=== PATIENT | male | born 1955 | race Caucasian/White ===

== ENCOUNTER 2020-05-17 01:00 | Inpatient (IN) | payer OTHER ==
[~2020-05-17] VITALS: Ht 167.6 cm; Wt 96.2 kg
[2020-05-17] VITALS (7 sets, daily range): BP systolic 128–138; BP diastolic 66–71
--- NOTE | 2020-05-17 03:00 | NUR ---
JOURNEYMAN MACHINISTLINUX NETWORK ADMINISTRATOR NOTES RECEIVED PATIENT DIRECT ADMIT FROM [facility], ALERT AND ORIENTED X 4 AMBULATORY WITH CANE. VERBALLY RESPONSIVE AND ABLE TO FOLLOW DIRECTIONS. BREATHING REGULAR AND UNLABORED ON ROOM AIR. LEFT FOREARM G20 AND RIGHT AC G20 IV LINES INTACT AND PATENT, FLUSHING WELL WITH NO BLEEDING OR S/S OF INFILTRATION NOTED. 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 PHOTO TAKEN ATTACHED TO CHART. PLACED ON CARDIAC MONITORING WITH NSR AT 92bpm. PATIENT DIDN'T HAVE ADVANCE DIRECTIVES AND WISHED TO BE FULL CODE. DENIES SUICIDAL IDEATION OR PAIN/DISCOMFORT AT THIS TIME. BED LOW AND LOCKED ON SEMI FOWLERS POSITION. CALL LIGHT IN REACH. WILL CONTINUE TO MONITOR.
[2020-05-17] MEDS ORDERED: IV NS 0.9% 1,000 ML IV PRN (03:32)
[2020-05-17] MEDS ORDERED: HYDROCODONE/APAP 5/325MG TABLET PO PRN (04:00)
[2020-05-17] MEDS ORDERED: Z GUARD REMEDY 2 OZ OINT TP PRN (04:00)
[2020-05-17] MEDS ORDERED: MAG HYDROX/AL HYDROX/SIMETH 30 ML UDC PO PRN (04:00)
[2020-05-17] MEDS ORDERED: ONDANSETRON HCL/PF 4 MG/2 ML VIAL IVP PRN (04:00)
[2020-05-17] MEDS ORDERED: ACETAMINOPHEN 325 MG TABLET PO PRN (04:00)
[2020-05-17] MEDS ORDERED: PIPERACILLIN /TAZOBACTAM 3.375 G VIAL IV ONE (04:20)
[2020-05-17] MEDS ORDERED: PIPERACILLIN /TAZOBACTAM 3.375 G in IV D5W 50 ML IV ONE (04:30)
--- NOTE | 2020-05-17 04:30 | NUR ---
ACCOUNT ENGINEER NOTES MRSA SWAB DONE.
[2020-05-17] MEDS ORDERED: VANCOMYCIN 1 GM VIAL ONE ×2 (04:57→04:59)
[2020-05-17] MEDS ORDERED: VANCOMYCIN 2 GM in IV D5W 500 ML IV ONE (05:00)
[2020-05-17] MEDS ORDERED: GLIP10TA11 PO (05:06)
[2020-05-17] MEDS ORDERED: METF-442 PO (05:06)
[2020-05-17] MEDS ORDERED: INSU100V3 SQ (05:06)
[2020-05-17] MEDS ORDERED: FURO20TA4 PO (05:06)
[2020-05-17] MEDS ORDERED: ATOR40TA PO (05:06)
[2020-05-17] MEDS ORDERED: INSU100I26 SQ ×2 (05:06)
[2020-05-17 05:52] LABS: BASOPHILS % (AUTO) 3.6 % (0.0-2.0); EOSINOPHILS % (AUTO) 8.7 % (0.0-6.0); HEMATOCRIT 23 % (39-51); HEMOGLOBIN 7.6 g/dL (13.5-17.5); LYMPHOCYTES # (AUTO) 0.3 /CMM (0.8-4.8); LYMPHOCYTES % (AUTO) 47.5 % (20.0-44.0); MEAN CORPUSCULAR HGB CONC 34 g/dl (31.0-36.0); MEAN CORPUSCULAR VOLUME 99 fL (80-96); MONOCYTES # (AUTO) 0.1 /CMM (0.1-1.30); MONOCYTES % (AUTO) 8.4 % (2.0-12.0); NEUTROPHILS # (AUTO) 0.2 /CMM (1.8-8.9); NEUTROPHILS % (AUTO) 31.8 % (43.0-81.0); PLATELET COUNT (AUTO) 61 /CMM (150-450); RED BLOOD CELL COUNT(AUTO) 2.28 MIL/uL (4.5-6.0)
[2020-05-17 05:56] LABS: ALBUMIN 2.4 g/dL (3.4-5.0); BILIRUBIN,TOTAL 0.5 mg/dL (0.2-1.0); CALCIUM, SERUM 8.3 mg/dL (8.5-10.1); CREATININE 0.6 mg/dL (0.6-1.3); MAGNESIUM 1.6 mg/dL (1.8-2.4); PHOSPHORUS 3.1 mg/dL (2.5-4.9); TOTAL PROTEIN, SERUM 6.4 g/dL (6.4-8.2); WHITE BLOOD COUNT (AUTO) 0.7 K/uL (4.3-11.0)
[2020-05-17] MEDS ORDERED: PIPERACILLIN /TAZOBACTAM 3.375 G in IV D5W 50 ML IV SCH (06:00)
--- NOTE | 2020-05-17 06:10 | NUR ---
READING ASSISTANT NOTES RELAYED CRITICAL LOW 0.7 WBC RESULT TO DONTE KLEIN WITH NO ORDERS PER HER PATIENT IS NEUTROPENIC. NO ORDERS FOR CHEMICAL DVT PPX TOO D/T LOW PLATELET LEVELS.
[2020-05-17 06:14] LABS: THYROID STIMULATING HORMONE 0.775 uIU/mL (0.358-3.74)
[2020-05-17 06:22] LABS: EOSINOPHILS % (MANUAL) 6 % (0-4); LYMPHOCYTES % (MANUAL) 57 % (16-48); MONOCYTES % (MANUAL) 7 % (0-11.0); NEUTROPHILS % (MANUAL) 30 (42-76)
--- NOTE | 2020-05-17 06:50 | NUR ---
SULFUR CHLORIDE OPERATOR CLOSING NOTES PATIENT IN BED ALERT AND ORIENTED X 4 AMBULATORY WITH CANE. AFEBRILE WITH NO S/S OF DISTRESS OBSERVED. LEFT FOREARM G20 AND RIGHT AC G20 IV LINES PATENT AND INFUSING WELL. MAINTAINED ON CARDIAC MONITORING WITH NSR AT 84bpm. DENIES PAIN/DISCOMFORT AT THIS TIME. MAINTAINED ON REVERSE ISOLATION FOR NEUTROPENIA. BED LOW AND LOCKED ON SEMI FOWLERS POSITION. CALL LIGHT IN REACH. WILL ENDORSE TO MORNING SHIFT FOR PATRICK.
--- NOTE | 2020-05-17 07:30 | NUR ---
MANAGER IMPLEMENTATION NOTES PT IN BED, AWAKE, ALERT AND ORIENTED, SITTING IN BED, EATING BREAKFAST, NO COMPLAINT OF PAIN OR ANY DISCOMFORT, BREATHING PATTERN NORMAL, IV FLUIDS INFUSING WELL, CALL LIGHT WITHIN REACH, NEEDS ATTENDED.
[2020-05-17] MEDS: PANTOPRAZOLE 40 MG VIAL IV SCH ×3 (08:41→17:34)
[2020-05-17] MEDS: Magnesium 1GM/D5W 100ML PREMIX 100 ML IV SCH ×2 (09:22→16:35)
--- NOTE | 2020-05-17 10:48 | NUR ---
WOUND CARE CONSULT: PT PRESENTS WITH LOWER BACK/SACRAL SCARRING, PRESENT ON ADMISSION. AREA IS PROTECTED WITH MEPILEX. DISCUSSED SKIN PROTECTION WITH NURSING STAFF. WILL SEE PRN. WEINER IN AGREEMENT WITH PLAN OF CARE. Addendum: 05/17/20 at 1049 by JONI SWENSON WNDNU Amended: Links added.
[2020-05-17] MEDS: PIPERACILLIN /TAZOBACTAM 3.375 G in IV D5W 100 ML IV SCH ×2 (11:04→17:35)
--- NOTE | 2020-05-17 12:35 | NUR ---
EDITOR SOUND NOTES PT IN BED, RESTING, NO COMPLAINT OF PAIN OR ANY DISCOMFORT, NOT IN DISTRESS, PT SEEN AND EXAMINED BY DR. MULTANI, PLAN OF CARE DISCUSSED WITH PT, VERBALIZED UNDERSTANDING, CALL LIGHT WITHIN REACH, IV FLUIDS INFUSING WELL.
[2020-05-17] MEDS ORDERED: DEXTROSE 50%-WATER 50 ML DISP.SYRIN IV PRN (13:30)
--- NOTE | 2020-05-17 15:49 | NUR ---
SPEEDER MACHINE OPERATOR NOTES PER DR. MULTANI, PT DOES NOT NEED BLOOD TRANSFUSION AT THIS TIME.
[2020-05-17] MEDS: glipiZIDE 10 MG TABLET PO SCH (17:34)
[2020-05-17] MEDS: INSULIN REGULAR, HUMAN 100 UNIT/ML 3 ML VIAL SQ PRN ×2 (17:39→23:37)
[2020-05-17] MEDS: BLOOD SUGAR DIAGNOSTIC 1 EACH STRIP IN SCH ×2 (17:40→23:34)
[2020-05-17] MEDS ORDERED: ATORVASTATIN 40 MG TABLET PO SCH (18:00)
[2020-05-17] MEDS: TBO-FILGRASTIM 480 MCG/0.8 ML ML SQ SCH (18:00)
--- NOTE | 2020-05-17 19:00 | NUR ---
LAP GRINDER NOTES PT IN BED, AWAKE, ALERT AND ORIENTED, WATCHING TV, PT ABLE TO AMBULATE IN THE ROOM, TOLERATES CURRENT DIET, CALL LIGHT WITHIN REACH, IV SITE TO RIGHT A/C INTACT AND PATENT, BS CHECKED, INSULIN GIVEN PER SLIDING SCALE ORDERED, ALL NEEDS ATTENDED.
--- NOTE | 2020-05-17 19:49 | NUR ---
TELE RECEIVE PT IN BED A/O X 3 WATCHING TV 88 SR IN TELE MONITORING STABLE AND NOT IN DISTRESS SAFETY MEASURES AT ALL TIMES. WILL CONT TO MONITOR
[2020-05-17] MEDS: CEFEPIME 2 GM in IV D5W 100 ML IV SCH (21:17)
[2020-05-17] MEDS: VANCOMYCIN 1.5 GM in IV D5W 500 ML IV SCH (23:30)
[2020-05-17] MEDS: INSULIN GLARGINE, 100 UNIT/ML CARTRIDGE SQ SCH (23:36)
[2020-05-18] VITALS (7 sets, daily range): BP systolic 129–150; BP diastolic 70–88
[2020-05-18] MEDS: CEFEPIME 2 GM in IV D5W 100 ML IV SCH ×3 (05:32→20:57)
--- NOTE | 2020-05-18 06:00 | NUR ---
FINANCIAL SPECIALIST 73'S HR SR ON CARDIAC MONITORING, AFEBRILE, MONITORED ACCORDINGLY, GOOD SKIN CARE AT ALL TIMES, SLEPT WELL, DENIES PAIN THROUGHOUT SHIFT. NEEDS ATTENDED AND ANTICIPATED, KEPT CLEAN, DRY AND COMFORTABLE, SAFETY MEASURES AT ALL TIMES. ENDORSE POC.
[2020-05-18] MEDS: BLOOD SUGAR DIAGNOSTIC 1 EACH STRIP IN SCH ×4 (06:25→21:15)
[2020-05-18] MEDS: INSULIN REGULAR, HUMAN 100 UNIT/ML 3 ML VIAL SQ PRN ×4 (06:26→21:18)
--- NOTE | 2020-05-18 07:37 | NUR ---
MAINTENANCE REPAIRER OPENING NOTE PATIENT IN BED RESTING COMFORTABLY. PATIENT IN NO ACUTE DISTRESS. NO SOB NOTED. PATIENT BREATHING IS EVEN AND UNLABORED. PATIENT ON CARDIAC MONITORING READING SINUS RHYTHM HR 96. PATIENT BED ALARM IS ON. SAFETY PRECAUTIONS IN PLACE. EDUCATED TO USE CALL LIGHT FOR ASSISTANCE. PATIENT BED IS LOCKED AND IN LOWEST POSITION. CALL LIGHT WITHIN REACH. WILL CONTINUE TO MONITOR.
[2020-05-18 07:48] LABS: CALCIUM, SERUM 8.5 mg/dL (8.5-10.1); CREATININE 0.6 mg/dL (0.6-1.3); PHOSPHORUS 3.1 mg/dL (2.5-4.9); POTASSIUM 3.5 mmol/L (3.5-5.1)
[2020-05-18 08:18] LABS: BASOPHILS % (AUTO) 1.8 % (0.0-2.0); EOSINOPHILS % (AUTO) 6.3 % (0.0-6.0); HEMATOCRIT 22 % (39-51); HEMOGLOBIN 7.4 g/dL (13.5-17.5); LYMPHOCYTES # (AUTO) 0.4 /CMM (0.8-4.8); MEAN CORPUSCULAR HGB CONC 33 g/dl (31.0-36.0); MEAN CORPUSCULAR VOLUME 98 fL (80-96); MONOCYTES # (AUTO) 0.1 /CMM (0.1-1.30); MONOCYTES % (AUTO) 6.4 % (2.0-12.0); NEUTROPHILS # (AUTO) 0.5 /CMM (1.8-8.9); NEUTROPHILS % (AUTO) 46.5 % (43.0-81.0); RED BLOOD CELL COUNT(AUTO) 2.25 MIL/uL (4.5-6.0)
[2020-05-18 08:23] LABS: PLATELET COUNT (AUTO) 43 /CMM (150-450)
[2020-05-18] MEDS: PANTOPRAZOLE 40 MG VIAL IV SCH (09:01)
[2020-05-18] MEDS: glipiZIDE 10 MG TABLET PO SCH ×2 (09:01→17:13)
[2020-05-18 09:46] LABS: BAND % (MANUAL) 4 % (0.0-5.0); EOSINOPHILS % (MANUAL) 4 % (0-4); LYMPHOCYTES % (MANUAL) 34 % (16-48); MONOCYTES % (MANUAL) 6 % (0-11.0); NEUTROPHILS % (MANUAL) 52 (42-76)
[2020-05-18] MEDS: VANCOMYCIN 1.5 GM in IV D5W 500 ML IV SCH ×2 (10:38→23:56)
--- NOTE | 2020-05-18 11:39 | NUR ---
CONFIGURATION MANAGEMENT CONSULTANT NOTE INFORMED LETY MULTANI OF URINE CULTURE RESULTS RECEIVED FROM [facility]. URINE CULTURE RESULTED IN MRSA. LETY MULTANI AWARE, PER LETY PATIENT ALREADY ON VANCO NO NEW ORDERS AT THIS TIME. LETY AWARE OF PLT 43 AND WBC 1.0. PATIENT CONTINUED ON ISOLATION PRECAUTIONS.
[2020-05-18] MEDS: MAGNESIUM HYDROXIDE 30 ML UDC PO PRN (12:29)
--- NOTE | 2020-05-18 12:29 | NUR ---
MS RN NOTE PATIENT REQUESTING MILK OF MAGNESIA FOR CONSTIPATION. MILK OF MAGNESIA GIVEN ORDERED.
--- NOTE | 2020-05-18 15:30 | NUR ---
MS RN NOTE MADE AWARE TO DR. SALAZAR OF PLT LEVEL 43 AND IF SHE WANTS TO CONTINUE TO MEDICATION GRANIX. PER DR. SALAZAR CONTINUE GRANIX MEDICATION AND PHARMACY [facility] MADE AWARE.
--- NOTE | 2020-05-18 16:27 | NUR ---
MS RN NOTE CLARIFIED WITH LETY MULTANI REGARDING IF PATIENT NEEDED BLOOD TRANSFUSION THAT WAS ORDERED YESTERDAY. PER LETY MULTANI NO NEED FOR BLOOD TRANSFUSION AT THIS TIME. CBC ORDERED FOR TOMORROW.
--- NOTE | 2020-05-18 16:28 | NUR ---
MS RN NOTE TRIED TO CALL FOR PATIENTS ONCOLOGIST DR. LOCKWOOD PER LETY MULTANI REQUEST FOR MEDICAL RECORDS FOR BLOOD CULTURES. MEDICAL OFFICES CLOSED FOR THE WEEKEND AT THIS TIME.
[2020-05-18] MEDS: TBO-FILGRASTIM 480 MCG/0.8 ML ML SQ SCH (17:08)
[2020-05-18] MEDS: PANTOPRAZOLE 40 MG TABLET.DR PO SCH (17:13)
[2020-05-18] MEDS: NYSTATIN (PYXIS) 500,000 UNIT/5 ML ORAL.SUSP PO SCH (17:13)
--- NOTE | 2020-05-18 18:39 | NUR ---
MS RN CLOSING NOTE PATIENT IN BED RESTING COMFORTABLY. PATIENT IN NO ACUTE DISTRESS. NO SOB NOTED. PATIENT BREATHING IS EVEN AND UNLABORED. PATIENT KEPT CLEAN, DRY, AND COMFORTABLE THROUGHOUT SHIFT. PATIENT BED ALARM IS ON. SAFETY PRECAUTIONS IN PLACE. ISOLATION PRECAUTIONS MAINTAINED. EXPLAINED ALL DUE MEDS. NEEDS AND CONCERNS ADDRESSED. PATIENT BED IS LOCKED AND IN LOWEST POSITION. CALL LIGHT WITHIN REACH. WILL ENDORSE CARE TO PM SHIFT FOR PATRICK.
--- NOTE | 2020-05-18 19:30 | NUR ---
MS RN RECEIVE PT IN BED A/O X 4 STABLE AND NOT IN DISTRESS, SAFETY MEASURES AT ALL TIMES. WILL CONT TO MONITOR
[2020-05-18] MEDS: INSULIN GLARGINE, 100 UNIT/ML CARTRIDGE SQ SCH (21:18)
--- NOTE | 2020-05-18 23:48 | NUR ---
STILL AWAITING RESULT TOXICOLOGY VANCOMYCIN
[2020-05-19] MEDS: CEFEPIME 2 GM in IV D5W 100 ML IV SCH ×3 (05:29→21:08)
--- NOTE | 2020-05-19 06:50 | NUR ---
MS RN ASLEEP AND EASILY AWAKEN, ALL NEEDS ATTENDED AND ANTICIPATED, AFEBRILE, KEPT CLEAN, DRY AND COMFORTABLE. AM CARE RENDERED, GOOD SKIN CARE AT ALL TIMES. MONITORED CLOSELY, SAFETY MEASURES AT ALL TIMES. WILL ENDORSE TO NEXT SHIFT.
[2020-05-19] MEDS: BLOOD SUGAR DIAGNOSTIC 1 EACH STRIP IN SCH ×4 (06:52→22:23)
[2020-05-19] MEDS: INSULIN REGULAR, HUMAN 100 UNIT/ML 3 ML VIAL SQ PRN ×4 (06:54→22:38)
[2020-05-19 07:26] LABS: BASOPHILS % (AUTO) 2.1 % (0.0-2.0); EOSINOPHILS % (AUTO) 2.3 % (0.0-6.0); HEMATOCRIT 22 % (39-51); HEMOGLOBIN 7.6 g/dL (13.5-17.5); LYMPHOCYTES # (AUTO) 0.4 /CMM (0.8-4.8); LYMPHOCYTES % (AUTO) 19.1 % (20.0-44.0); MEAN CORPUSCULAR HGB CONC 34 g/dl (31.0-36.0); MEAN CORPUSCULAR VOLUME 98 fL (80-96); MONOCYTES # (AUTO) 0.1 /CMM (0.1-1.30); MONOCYTES % (AUTO) 6.8 % (2.0-12.0); NEUTROPHILS # (AUTO) 1.4 /CMM (1.8-8.9); NEUTROPHILS % (AUTO) 69.7 % (43.0-81.0); RED BLOOD CELL COUNT(AUTO) 2.26 MIL/uL (4.5-6.0); WHITE BLOOD COUNT (AUTO) 2.1 K/uL (4.3-11.0)
--- NOTE | 2020-05-19 07:34 | NUR ---
MS RN OPENING NOTES PATIENT IS AWAKE A/O X 4. NO SIGNS OF DISTRESS AND SO SOB IN ROOM AIR. IV R AC #18G BUTTERFLY INTACT. NO COMPLAIN OF PAIN AT THIS TIME. SAFETY MEASURES ARE APPLIED, BED IS IN LOW POSITION AND LOCKED. SIDE RAILS UP X 2 FOR SAFETY. CALL LIGHT WITHIN REACH. WILL CONTINUE TO MONITOR Addendum: 05/19/20 at 0755 by INDERJIT ABBOTT RN MS RN OPENING NOTES PATIENT IS AWAKE A/O X 4. NO SIGNS OF DISTRESS AND SO SOB IN ROOM AIR. IV R AC #18G BUTTERFLY INTACT. NO COMPLAIN OF PAIN AT THIS TIME. REVERSE ISOLATION. SAFETY MEASURES ARE APPLIED, BED IS IN LOW POSITION AND LOCKED. SIDE RAILS UP X 2 FOR SAFETY. CALL LIGHT WITHIN REACH. WILL CONTINUE TO MONITOR
[2020-05-19 07:39] LABS: CALCIUM, SERUM 8.9 mg/dL (8.5-10.1); CREATININE 0.6 mg/dL (0.6-1.3); POTASSIUM 3.6 mmol/L (3.5-5.1)
[2020-05-19 07:44] LABS: PLATELET COUNT (AUTO) 36 /CMM (150-450)
[2020-05-19 08:00] VITALS: BP 134/68
--- NOTE | 2020-05-19 08:00 | NUR ---
MADE AWARE TO MAJOR MULTANI OF PLT LEVEL 36. THERE ARE NO SIGNS OF BLEEDING. NO NEW ORDERS CONTINUE ON REVERSE ISOLATION. WILL CONTINUE TO MONITOR.
[2020-05-19] MEDS: NYSTATIN (PYXIS) 500,000 UNIT/5 ML ORAL.SUSP PO SCH ×3 (08:04→16:50)
[2020-05-19] MEDS: glipiZIDE 10 MG TABLET PO SCH ×2 (08:04→16:50)
[2020-05-19] MEDS: PANTOPRAZOLE 40 MG TABLET.DR PO SCH ×2 (08:04→16:50)
[2020-05-19 08:59] LABS: EOSINOPHILS % (MANUAL) 2 % (0-4); LYMPHOCYTES % (MANUAL) 20 % (16-48); MONOCYTES % (MANUAL) 6 % (0-11.0); NEUTROPHILS % (MANUAL) 68 (42-76)
[2020-05-19] MEDS: VANCOMYCIN 1.5 GM in IV D5W 500 ML IV SCH ×2 (11:49→22:41)
--- NOTE | 2020-05-19 14:13 | NUR ---
DR. SALAZAR AWARE PF PATIENT PLATELET COUNT DROP TO 36. SHE SAID TO CONTINUE WITH GRANIX TODAY AND WE WILL MONITOR LABS TOMORROW. NOTED AND CARRIED OUT.
[2020-05-19 16:00] VITALS: BP 148/84
[2020-05-19] MEDS: TBO-FILGRASTIM 480 MCG/0.8 ML ML SQ SCH (17:18)
[2020-05-19] MEDS: MAGNESIUM HYDROXIDE 30 ML UDC PO PRN (18:31)
--- NOTE | 2020-05-19 19:44 | NUR ---
MR RN CLOSED NOTES PATIENT IS A/O X 4. NO SIGNS OF DISTRESS IN ROOM AIR. IV R FA # 20G INTACT AND IV L HAND #22 G INTACT. REVERSE ISOLATION PRECAUTION. PATIENT REMAINED STABLE THROUGH OUT SHIFT. KEPT CLEAN AND DRY. ALL MEDICATIONS WERE GIVEN SCHEDULED. SAFETY MEASURES ARE APPLIED, BED IS IN LOCK POSITION SIDE RAILS UP X 2 FOR SAFETY. CALL LIGHT WITHIN REACH. WILL ENDORSE TO THE NEXT CODING ANALYST NURSE.
[2020-05-19 20:00] VITALS: BP 150/73
[2020-05-19] MEDS ORDERED: MORPHINE SULFATE INJ 2 MG/ML DISP.SYRIN IV PRN (20:00)
--- NOTE | 2020-05-19 20:00 | NUR ---
MS/RN OPENING NOTES RECEIVED PATIENT IN BED, AWAKE, ALERT X4, ABLE TO VERBALIZE NEEDS, REPORTED SEVERE PAIN OF 10 IN BLE AND REFUSE PO NORCO AND PREFER TO HAVE MORPHINE , CLARIFIED WITH PATIENT THAT HE HAS TAKEN MORPHINE AT THE ER OF [facility] AND HAS NOT USED IT AT HOME, MD AWARE AND MD ORDER ONE TIME IV MORPHINE 1 MG. ORDER CARRIED OUT. TO MONITOR. BP ELEVATED AT 150/73. BED LOCKED, CALL LIGHTS WITHIN REACH, SELF CARE ABILITIY, ON ROOM AIR, TO MONITOR. RECEIVED ENDORSEMENT FROM AM RN FOR PATRICK.
[2020-05-19] MEDS: MUPIROCIN OINT 2% 22 GM TUBE NS SCH (21:00)
--- NOTE | 2020-05-19 21:16 | NUR ---
ms/rn notes PATIENT MORPHINE ONE TIME ORDER IVP GIVEN 1 MG/0.5 ML FOR SEVERE PAIN TO MONITOR RELIEF.
[2020-05-19] MEDS: INSULIN GLARGINE, 100 UNIT/ML CARTRIDGE SQ SCH (22:36)
[2020-05-20] MEDS: CEFEPIME 2 GM in IV D5W 100 ML IV SCH ×3 (04:01→20:25)
[2020-05-20] MEDS: BLOOD SUGAR DIAGNOSTIC 1 EACH STRIP IN SCH ×4 (06:03→21:26)
--- NOTE | 2020-05-20 06:18 | NUR ---
329-1 MS/RN NOTES PATIENT ABLE TO SLEEP DURING THE NIGHT, BE D LOCKED, CALL LIGHTS WITHIN REACH, MONITOR FOR SAFETY, ATTENDED ALL NEEDS, WILL ENDORSE TO AM RN FOR PATRICK. INDEPENDENT AND ABLE TO DO SRLF CARE, PAIN MANAGED AND REFERRAL NEEDED.
[2020-05-20] MEDS: INSULIN REGULAR, HUMAN 100 UNIT/ML 3 ML VIAL SQ PRN ×4 (06:54→21:30)
--- NOTE | 2020-05-20 07:38 | NUR ---
MS RN OPENING NOTES RECEIVED PATIENT IN BED AWAKE, A/O X4. PATIENT ON ROOM AIR; BREATHING EVEN AND UNLABORED; NO SOB PRESENT. NO COMPLAINS OF PAIN AT THIS TIME. IV PRESENT ON LEFT AND R FOREARM, SIZE 22, INTACT & PATENT. SAFETY PRECAUTIONS IN PLACE; BED IN LOW POSITION AND LOCKED, HOB ELEVATED, RAILS UP X2, CALL LIGHT WITHIN REACH. WILL CONTINUE TO MONITOR PATIENT.
[2020-05-20 07:48] LABS: EOSINOPHILS % (AUTO) 1.2 % (0.0-6.0); HEMATOCRIT 24 % (39-51); LYMPHOCYTES # (AUTO) 0.7 /CMM (0.8-4.8); MEAN CORPUSCULAR HGB CONC 34 g/dl (31.0-36.0); MEAN CORPUSCULAR VOLUME 99 fL (80-96); MONOCYTES # (AUTO) 0.2 /CMM (0.1-1.30); MONOCYTES % (AUTO) 5.9 % (2.0-12.0); NEUTROPHILS # (AUTO) 3.1 /CMM (1.8-8.9); NEUTROPHILS % (AUTO) 74.9 % (43.0-81.0); RED BLOOD CELL COUNT(AUTO) 2.39 MIL/uL (4.5-6.0); WHITE BLOOD COUNT (AUTO) 4.1 K/uL (4.3-11.0)
[2020-05-20 08:00] VITALS: BP 103/66
[2020-05-20] MEDS: glipiZIDE 10 MG TABLET PO SCH ×2 (08:04→16:08)
[2020-05-20] MEDS: NYSTATIN (PYXIS) 500,000 UNIT/5 ML ORAL.SUSP PO SCH ×3 (08:04→16:08)
[2020-05-20] MEDS: MUPIROCIN OINT 2% 22 GM TUBE NS SCH ×2 (08:16→20:25)
[2020-05-20] MEDS: PANTOPRAZOLE 40 MG TABLET.DR PO SCH ×2 (08:27→16:08)
[2020-05-20 09:11] LABS: PLATELET COUNT (AUTO) 45 /CMM (150-450)
--- NOTE | 2020-05-20 11:13 | NUR ---
MS RN NOTES PER LETY MULTANI CONTACTED DR. BALDWIN OFFICE TO CHECK RESULTS OF THE BLOOD CULTURES AND RECEIVE A FAX WITH THE RESULTS. CALLED DR. BALDWIN OFFICE AND SPOKE TO KATIE. GAVE HER OUR FAX NUMBER. WAITING FOR FAX. WILL FOLLOW-UP.
[2020-05-20 11:20] LABS: BAND % (MANUAL) 3 % (0.0-5.0); EOSINOPHILS % (MANUAL) 3 % (0-4); LYMPHOCYTES % (MANUAL) 22 % (16-48); MONOCYTES % (MANUAL) 10 % (0-11.0); NEUTROPHILS % (MANUAL) 62 (42-76)
[2020-05-20] MEDS: VANCOMYCIN 1.5 GM in IV D5W 500 ML IV SCH ×2 (11:34→22:54)
[2020-05-20 13:22] LABS: CALCIUM, SERUM 8.7 mg/dL (8.5-10.1); CREATININE 0.7 mg/dL (0.6-1.3); POTASSIUM 3.7 mmol/L (3.5-5.1)
[2020-05-20 16:00] VITALS: BP 144/80
[2020-05-20] MEDS: TBO-FILGRASTIM 480 MCG/0.8 ML ML SQ SCH (17:22)
--- NOTE | 2020-05-20 18:48 | NUR ---
MS RN CLOSING NOTES PATIENT IN BED AWAKE, A/O X4. PATIENT ON ROOM AIR; BREATHING EVEN AND UNLABORED; NO SOB PRESENT DURING SHIFT. NO COMPLAINS OF PAIN DURING THE DAY WELL. IV PRESENT ON LEFT AND R FOREARM, SIZE 22, INTACT & PATENT. ALL NEEDS ATTENDED TO DURING THE DAY. SAFETY PRECAUTIONS IN PLACE; BED IN LOW POSITION AND LOCKED, HOB ELEVATED, RAILS UP X2, CALL LIGHT WITHIN REACH. WILL ENDORSE TO BUSINESS SYSTEM MANAGER NURSE.
--- NOTE | 2020-05-20 19:35 | NUR ---
MS RN OPENING NOTES RECEIVED PATIENT FROM MORNING SHIFT, ALERT AND ORIENTED X 4 AMBULATORY WITH CANE. VERBALLY RESPONSIVE AND ABLE TO FOLLOW DIRECTIONS. BREATHING REGULAR AND UNLABORED ON ROOM AIR. LEFT FOREARM G22 AND RIGHT FOREARM G20 IV LINES INTACT AND PATENT, FLUSHING WELL WITH NO BLEEDING OR S/S OF INFILTRATION NOTED. DENIES SUICIDAL IDEATION AT THIS TIME. COMPLAINED OF 9/10 RIGHT THIGH PAIN, NON-PHARMACOLOGICAL INTERVENTIONS PROVIDED. ON CONTACT ISOLATION FOR MRSA NARES, PROPER HAND WASHING AND ISOLATION PRECAUTION OBSERVED. BED LOW AND LOCKED ON SEMI FOWLERS POSITION. CALL LIGHT IN REACH. WILL CONTINUE TO MONITOR.
[2020-05-20] MEDS: MORPHINE SULFATE INJ 2 MG/ML DISP.SYRIN IV PRN (19:42)
--- NOTE | 2020-05-20 19:50 | NUR ---
MS RN NOTES COMPLAINED OF 9/10 RIGHT THIGH PAIN, MORPHINE 2MG GIVEN VIA IV PUSH. NON-PHARMACOLOGICAL INTERVENTIONS PROVIDED. VITAL SIGNS WNL. WILL CONTINUE TO MONITOR.
[2020-05-20 20:00] VITALS: BP 142/72
[2020-05-20] MEDS: INSULIN GLARGINE, 100 UNIT/ML CARTRIDGE SQ SCH (21:28)
--- NOTE | 2020-05-20 22:00 | NUR ---
MS RN NOTES BS 280mg/dl, 20u LANTUS AND 6u REGULAR INSULIN GIVEN SQ. SITE ROTATED. SNACK PROVIDED ON BEDSIDE. WILL CONTINUE TO MONITOR.
[2020-05-21] MEDS: CEFEPIME 2 GM in IV D5W 100 ML IV SCH ×2 (05:06→12:35)
[2020-05-21 05:11] LABS: APPEARANCE,URINE CLEAR (CLEAR); BILIRUBIN,URINE NEGATIVE (NEGATIVE); BLOOD, URINE NEGATIVE Ery/uL (NEGATIVE); COLOR,URINE YELLOW (YELLOW); KETONES,URINE NEGATIVE (NEGATIVE); LEUKOCYTE ESTERASE ,URINE NEGATIVE (NEGATIVE); NITRITE, URINE NEGATIVE (NEGATIVE); PROTEIN,URINE NEGATIVE (NEGATIVE); UGLUCOSE 250 MG/DL mg/dL (NEGATIVE); UROBILINOGEN,URINE 0.2 EU/dL (0.2)
[2020-05-21] MEDS: BLOOD SUGAR DIAGNOSTIC 1 EACH STRIP IN SCH ×3 (06:36→17:12)
[2020-05-21] MEDS: PANTOPRAZOLE 40 MG TABLET.DR PO SCH ×2 (06:36→16:32)
[2020-05-21] MEDS: INSULIN REGULAR, HUMAN 100 UNIT/ML 3 ML VIAL SQ PRN ×2 (06:39→11:45)
--- NOTE | 2020-05-21 06:40 | NUR ---
MS RN CLOSING NOTES PATIENT IN BED ALERT AND ORIENTED X 4 AMBULATORY WITH CANE. AFEBRILE WITH NO S/S OF DISTRESS OBSERVED. LEFT HAND G22 AND RIGHT AC G20 IV LINES PATENT AND FLUSHING WELL. DENIES PAIN/DISCOMFORT AT THIS TIME. MAINTAINED ON CONTACT ISOLATION FOR MRSA NARES. BED LOW AND LOCKED ON SEMI FOWLERS POSITION. CALL LIGHT IN REACH. WILL ENDORSE TO MORNING SHIFT FOR PATRICK.
[2020-05-21] MEDS: MORPHINE SULFATE INJ 2 MG/ML DISP.SYRIN IV PRN (07:24)
[2020-05-21 08:00] VITALS: BP 125/70
--- NOTE | 2020-05-21 08:03 | NUR ---
MS/RN - Assessment Patient is alert and oriented x 4, c/o right thigh pain 9/10, Morphine 2 mg IVP given with relief, afebrile, stable on room air, no apparent distress. Saline lock on the RFA and left hand are both patent, intact with no signs of infiltration. All needs attended. Contact isolation precautions maintained for MRSA nares. Will continue with current medical management.
[2020-05-21] MEDS: NYSTATIN (PYXIS) 500,000 UNIT/5 ML ORAL.SUSP PO SCH ×3 (08:29→16:32)
[2020-05-21] MEDS: glipiZIDE 10 MG TABLET PO SCH ×2 (08:29→16:32)
[2020-05-21] MEDS: MUPIROCIN OINT 2% 22 GM TUBE NS SCH (08:30)
[2020-05-21] MEDS ORDERED: VANCOMYCIN 1.5 GM in IV D5W 500 ML IV SCH (11:00)
--- NOTE | 2020-05-21 13:00 | NUR ---
MS/RN - Notes Patient is A/O x 4, no acute distress, comfortable, on room air, afebrile. All needs attended. Will continue to monitor.
--- NOTE | 2020-05-21 17:40 | NUR ---
MS/RN - Discharge Patient is alert and oriented, discharged home in stable condition, remain afebrile, denies pain, not in any form of distress, stable on room air, SpO2 96-98%, ambulatory with cane. Reviewed discharge instructions with patient and he verbalized full understanding of all teachings including medications, follow-up care with PCP and oncologist as scheduled. Written prescription for oxycodone and Doxycycline were provided. Patient was advised to seek immediate medical attention for worsening symptoms, chest pain, shortness of breath, palpitations, abdominal pain/distention, intractable nausea and vomiting, diarrhea, weakness, loss of consciousness, neurological deficit, or any other emergent concerns. All belongings with patient and he deny any missing items. Saline lock removed on the left hand and RFA with catheter tip intact, no redness, no swelling noted at the site. Discharge paperwork signed and copies were given per protocol. Transported by ambulance, endorsed accordingly. Addendum: 05/21/20 at 1753 by ZOIE CHANG RN In addition to above notes: Patient refused discharge pictures to be taken on right lower back/sacral scarring and scabs on his head.
== END 2020-05-21 17:35 | disposition left against medical advice (07) | DRG 720 ==
LOC: TELE 02:12 → MED 05-18 09:30
PROVIDERS: ADMIT Nurse Practitioner Acute Care; ATTEND Nurse Practitioner Acute Care
DX: A41.9 Sepsis, unspecified organism (principal); I21.A1 Myocardial infarction type 2; C49.9 Malignant neoplasm of connective and soft tissue, unspecified; C78.00 Secondary malignant neoplasm of unspecified lung; E83.42 Hypomagnesemia; E11.42 Type 2 diabetes mellitus with diabetic polyneuropathy; I50.9 Heart failure, unspecified; I11.0 Hypertensive heart disease with heart failure; E78.5 Hyperlipidemia, unspecified; N39.0 Urinary tract infection, site not specified; D61.810 Antineoplastic chemotherapy induced pancytopenia; B37.9 Candidiasis, unspecified; Z87.891 Personal history of nicotine dependence; F10.11 Alcohol abuse, in remission; Y90.9 Presence of alcohol in blood, level not specified; Z79.4 Long term (current) use of insulin; Z79.899 Other long term (current) drug therapy; D53.9 Nutritional anemia, unspecified; Z92.3 Personal history of irradiation; E66.9 Obesity, unspecified; Z68.34 Body mass index [BMI] 34.0-34.9, adult; B95.62 Methicillin resistant Staphylococcus aureus infection as the cause of diseases classified elsewhere; E11.65 Type 2 diabetes mellitus with hyperglycemia
CPT/HCPCS: 36415; 80048-TC; 80053-TC; 80061-TC; 80202-TC; 81000-TC; 82962-TC; 83540-TC; 83605-TC; 83735-TC; 84100-TC; 84443-TC; 84484-TC; 85025-TC; 85610-TC; 85730-TC; 86850-TC; 87040-TC; 87081-TC; 87086-TC; 93307-TC; 97116-TC; 97530-TC; A6403; C9113; G0378; J0692; J1447; J1815; J2270; J2543; J3370; J3475; J7030; J7060